=== PATIENT | female | born 1970 | race American Indian/Alaskan Native ===

== ENCOUNTER 2016-06-10 20:20 | Emergency (ER) | payer SELFPAY ==
--- NOTE | 2016-06-11 02:07 | Emergency Department Report ---
ED General Adult HPI - General Chief complaint: Upper Respiratory Infection Stated complaint: SOB Source: patient, family Mode of arrival: Ambulatory Limitations: No Limitations - History of Present Illness Initial comments: Patient presents for evaluation of one episode of shortness of breath which occurred several hours ago. States she felt short of breath (couldn't catch her breath, felt like chest cold ) when she stood up from a sitting position. States shortness of breath lasted has resolved and she feels better. Denies previous history of shortness of breath, asthma or COPD, leg pain or swelling, oral contraceptive use, recent travels, recent illness. Denies weakness, light-headedness, syncope, chest pain pressure or discomfort, wheezing, N/V. No family hx of heart diseases. Reports Hysterectomy in 2013. States in good health except for hypertension and dyslipidemia for which she takes medications (Enalapril, HCTZ, and simvastatin) for. - Related Data Previous Rx's Medication Instructions Recorded Last Taken Type ALBUTEROL Inhaler [ProAir HFA 1 puff IH Q4HR PRN #1 inha 06/11/16 Unknown Rx Inhaler] Allergies Allergy/AdvReac Type Severity Reaction Status Date / Time azithromycin Allergy Swelling Verified 06/10/16 21:13 ceftriaxone Allergy Swelling Verified 06/10/16 21:13 ketorolac tromethamine Allergy Swelling Verified 06/10/16 21:13 [From Toradol] ED Review of Systems ROS: Stated complaint: SOB Other details as noted in HPI Comment: All other systems reviewed and negative ED Past Medical Hx - Past Medical History Previous Medical History?: Yes Hx Hypertension: Yes - Surgical History Past Surgical History?: Yes Additional Surgical History: Hyst - Social History Smoking Status: Never Smoker Substance Use Type: None - Medications Home Medications: Home Medications Medication Instructions Recorded Confirmed Last Taken Type ALBUTEROL Inhaler [ProAir HFA 1 puff IH Q4HR PRN #1 inha 06/11/16 Unknown Rx Inhaler] ED Physical Exam - General Limitations: No Limitations General appearance: alert, in no apparent distress - Head Head exam: Present: atraumatic, normocephalic - Eye Eye exam: Present: normal appearance, PERRL, EOMI. Absent: scleral icterus, conjunctival injection, periorbital swelling, periorbital tenderness - ENT ENT exam: Present: normal exam, normal orophraynx, mucous membranes moist, TM's normal bilaterally, normal external ear exam - Neck Neck exam: Present: normal inspection, full ROM. Absent: tenderness, lymphadenopathy - Respiratory Respiratory exam: Present: normal lung sounds bilaterally. Absent: respiratory distress, wheezes, rales, rhonchi, stridor, chest wall tenderness, accessory muscle use, decreased breath sounds, prolonged expiratory - Cardiovascular Cardiovascular Exam: Present: regular rate, normal rhythm - GI/Abdominal GI/Abdominal exam: Present: soft, normal bowel sounds. Absent: tenderness - Extremities Exam Extremities exam: Present: normal inspection, full ROM, tenderness, normal capillary refill. Absent: pedal edema, joint swelling, calf tenderness - Back Exam Back exam: Present: normal inspection - Neurological Exam Neurological exam: Present: alert, oriented X3, normal gait, reflexes normal. Absent: motor sensory deficit - Psychiatric Psychiatric exam: Present: normal affect, normal mood - Skin Skin exam: Present: warm, dry, intact, normal color. Absent: rash, cyanosis, pallor ED Course Vital Signs 06/10/16 06/11/16 21:09 04:25 Temperature 97.8 F 97.7 F Pulse Rate 88 67 Respiratory 18 16 Rate Blood Pressure 131/81 Blood Pressure 123/79 [Left] O2 Sat by Pulse 98 97 Oximetry ED Medical Decision Making - Lab Data Result diagrams: 06/11/16 02:29 06/11/16 02:29 - EKG Data -: EKG Interpreted by N[facility] EKG shows normal: sinus rhythm (Non-specific T wave abnormality. No obvious ST elevation/depression.) - Radiology Data Radiology results: report reviewed According to radiology report of CXR, no obvious acute cardiopulmonary pathology. - Medical Decision Making 45 YOF with single episode of SOB that has completely resolved. Patient is stable. She has a low risk (<2%) of PE per PERC rule, and low risk (0.9-1.7%) of major adverse coronary event per HEART score. She will be DC'd on Albuterol inhaler PRN and referred to mortgage loan underwriter for further evaluation. Patient education, follow-up/wound care physician, and return instructions provided. She verbalized understanding and is agreeable to plan. Patient discussed with Dr. Giles. He is agreeable to plan. Critical care attestation.: If time is entered above; I have spent that time in minutes in the direct care of this critically ill patient, excluding procedure time. ED Disposition Clinical Impression: Shortness of breath, Abnormal EKG Disposition: DISCHARGED TO HOME OR SELFCARE Is pt being admited?: No Does the pt Need Aspirin: No Condition: Stable Instructions: Dyspnea (ED) Additional Instructions: Follow instructions for care. Be compliant with and use medications as prescribed. Follow up with mortgage loan underwriter for further evaluation of your shortness of breath. Return to ED for new or worsening symptom. Prescriptions: ALBUTEROL Inhaler [ProAir HFA Inhaler] 1 puff IH Q4HR PRN #1 inha PRN Reason: Shortness Of Breath Referrals: DANUTA BERRY MD [Staff Physician] - 2-3 Days [facility] [Outside] - 2-3 Days PRIMARY CAREMD [Primary Care Provider] - 2-3 Days
--- NOTE | 2016-06-11 03:18 | XRay Report ---
FINAL REPORT EXAM: XR CHEST ROUTINE 2V HISTORY: SOB TECHNIQUE: 2 views of the chest PRIORS: None FINDINGS: Lungs are clear. Heart size is mildly enlarged. No pleural effusion or pneumothorax. No vascular congestion. IMPRESSION: 1. No acute finding.
[2016-06-11 03:21] LABS: Basophils % (Auto) 0.6 % (0.0-1.8); Eosinophils % (Auto) 1.8 % (0.0-4.3); Hematocrit 38.7 % (30.3-42.9); Hemoglobin 12.2 gm/dl (10.1-14.3); Mean Corpuscular HGB Conc 32 % (30-34); Mean Corpuscular Volume 79 fl (79-97); Platelet Count 288 K/mm3 (140-440); Red Blood Count 4.89 M/mm3 (3.65-5.03); Red Cell Distribution Width 14.8 % (13.2-15.2); White Blood Count 8.1 K/mm3 (4.5-11.0)
[2016-06-11 03:24] LABS: Mean Corpuscular Hemoglobin 25 pg (28-32)
[2016-06-11 03:47] LABS: Anion Gap 16 mmol/L; Blood Urea Nitrogen 7 mg/dL (7-17); Calcium 8.8 mg/dL (8.4-10.2); Carbon Dioxide 27 mmol/L (22-30); Chloride 97.8 mmol/L (98-107); Glucose 89 mg/dL (65-100); Potassium 3.6 mmol/L (3.6-5.0); Sodium 137 mmol/L (137-145)
[2016-06-11 04:25] VITALS: BP 123/79
== END 2016-06-11 04:26 | disposition home or self-care (01) ==
LOC: ED 20:20
DX: R06.02 Shortness of breath (principal); R94.31 Abnormal electrocardiogram [ECG] [EKG]; I10 Essential (primary) hypertension; Z90.710 Acquired absence of both cervix and uterus; Z88.8 Allergy status to other drugs, medicaments and biological substances; Z88.1 Allergy status to other antibiotic agents
CPT/HCPCS: 36415; 71020; 80048; 83880; 84484; 85025; 93005; 93010

== ENCOUNTER 2017-02-03 07:47 | Emergency (ER) | payer SELFPAY ==
[2017-02-03] MEDS ORDERED: TYLENOL PO ONE (09:00)
[2017-02-03 12:16] VITALS: BP 128/78
--- NOTE | 2017-02-03 15:51 | Emergency Department Report ---
Entered by CRISTIANA JULIEN, acting as scribe for SUREKHA MUNOZ PA. ED ENT HPI - General Chief complaint: Sore Throat Stated complaint: SORE THROAT Time Seen by Provider: 02/03/17 10:01 Source: patient Mode of arrival: Ambulatory Limitations: No Limitations - History of Present Illness Initial comments: 46 y/o female with a PMHx of HTN presents to the ED c/o a sore throat that began 2 days ago. Rates pain a 5/10 in severity, which she describes as throbbing in quality. Aggravated with swallowing and alleviated with nothing. Associated symptom includes mild dry cough, but she denies fever, chills, nausea , vomiting, headache, dizziness, dental pain, ear pain, congestion, rhinorrhea, chest pain, and SOB. Reports a possible sick contact, because she works as a ENVIRONMENTAL ADVISER. Patient also notes that she's been out her HTN medication for 1 month, but she states she already has a prescription for her medication. Allergic to azithromycin, ceftriaxone, and ketorolac tromethamine. MD complaint: sore throat Onset/Timin -: days(s) Location: throat Severity: severe Severity scale (0 -10): 10 Quality: other (throbbing) Consistency: constant Improves with: none Worsens with: swallowing Associated Symptoms: cough (mild), pain with swallowing, sore throat. denies: fever, gum swelling, toothache, tinnitus, hearing loss, discharge from ear, rhinorrhea - Related Data Previous Rx's Medication Instructions Recorded Last Taken Type ALBUTEROL Inhaler [ProAir HFA 1 puff IH Q4HR PRN #1 inha 06/11/16 Unknown Rx Inhaler] Enalapril Maleate [Vasotec] 10 mg PO DAILY #30 tablet 02/03/17 Unknown Rx Hydrochlorothiazide [Hctz] 12.5 mg PO QDAY #30 capsule 02/03/17 Unknown Rx Ibuprofen [Motrin] 600 mg PO Q8H PRN #30 tablet 02/03/17 Unknown Rx Simvastatin [Zocor TAB] 10 mg PO QHS #30 tablet 02/03/17 Unknown Rx Allergies Allergy/AdvReac Type Severity Reaction Status Date / Time azithromycin Allergy Swelling Verified 06/10/16 21:13 ceftriaxone Allergy Swelling Verified 06/10/16 21:13 ketorolac tromethamine Allergy Swelling Verified 06/10/16 21:13 [From Toradol] ED Dental HPI - General Chief complaint: Sore Throat Stated complaint: SORE THROAT Time Seen by Provider: 02/03/17 10:01 Source: patient Mode of arrival: Ambulatory Limitations: No Limitations - Related Data Previous Rx's Medication Instructions Recorded Last Taken Type ALBUTEROL Inhaler [ProAir HFA 1 puff IH Q4HR PRN #1 inha 06/11/16 Unknown Rx Inhaler] Enalapril Maleate [Vasotec] 10 mg PO DAILY #30 tablet 02/03/17 Unknown Rx Hydrochlorothiazide [Hctz] 12.5 mg PO QDAY #30 capsule 02/03/17 Unknown Rx Ibuprofen [Motrin] 600 mg PO Q8H PRN #30 tablet 02/03/17 Unknown Rx Simvastatin [Zocor TAB] 10 mg PO QHS #30 tablet 02/03/17 Unknown Rx Allergies Allergy/AdvReac Type Severity Reaction Status Date / Time azithromycin Allergy Swelling Verified 06/10/16 21:13 ceftriaxone Allergy Swelling Verified 06/10/16 21:13 ketorolac tromethamine Allergy Swelling Verified 06/10/16 21:13 [From Toradol] ED Review of Systems Comment: All other systems reviewed and negative Constitutional: denies: chills, fever Eyes: denies: eye pain, eye discharge, vision change ENT: throat pain. denies: ear pain, dental pain, hearing loss, epistaxis, congestion Respiratory: cough (mild dry cough). denies: orthopnea, shortness of breath, SOB with exertion, SOB at rest, stridor, wheezing Cardiovascular: denies: chest pain, palpitations, dyspnea on exertion, orthopnea , edema, syncope, paroxysmal nocturnal dyspnea Endocrine: no symptoms reported Gastrointestinal: denies: abdominal pain, nausea, vomiting, diarrhea Genitourinary: denies: urgency, dysuria, discharge Musculoskeletal: denies: back pain, joint swelling, arthralgia Skin: denies: rash, lesions Neurological: denies: headache, weakness, numbness, paresthesias, confusion, abnormal gait, vertigo Psychiatric: denies: anxiety, depression Hematological/Lymphatic: denies: easy bleeding, easy bruising ED Past Medical Hx - Past Medical History Previous Medical History?: Yes Hx Hypertension: Yes - Surgical History Past Surgical History?: Yes Additional Surgical History: Hyst - Family History Family history: no significant - Social History Smoking Status: Never Smoker Substance Use Type: None - Medications Home Medications: Home Medications Medication Instructions Recorded Confirmed Last Taken Type ALBUTEROL Inhaler [ProAir HFA 1 puff IH Q4HR PRN #1 inha 06/11/16 Unknown Rx Inhaler] Enalapril Maleate [Vasotec] 10 mg PO DAILY #30 tablet 02/03/17 Unknown Rx Hydrochlorothiazide [Hctz] 12.5 mg PO QDAY #30 capsule 02/03/17 Unknown Rx Ibuprofen [Motrin] 600 mg PO Q8H PRN #30 tablet 02/03/17 Unknown Rx Simvastatin [Zocor TAB] 10 mg PO QHS #30 tablet 02/03/17 Unknown Rx ED Physical Exam - General Limitations: No Limitations General appearance: alert, in no apparent distress - Head Head exam: Present: atraumatic, normocephalic - Eye Eye exam: Present: normal appearance, PERRL, EOMI Pupils: Present: normal accommodation - ENT ENT exam: Present: normal exam, normal orophraynx, mucous membranes moist, TM's normal bilaterally, normal external ear exam - Expanded ENT Exam Expanded Ear exam: Present: normal external inspection Mouth exam: Present: normal external inspection, tongue normal. Absent: drooling, trismus, muffled voice, tongue elevation, laceration Teeth exam: Present: normal inspection Throat exam: Positive: normal inspection. Negative: tonsillar erythema, tonsillomegaly, tonsillar exudate, R peritonsillar mass, L peritonsillar mass - Neck Neck exam: Present: tenderness (tenderness to cervical lymph nodes), full ROM, lymphadenopathy (LT anterior). Absent: normal inspection, meningismus, thyromegaly - Respiratory Respiratory exam: Present: normal lung sounds bilaterally. Absent: respiratory distress, wheezes, rales, rhonchi, stridor, accessory muscle use, decreased breath sounds - Cardiovascular Cardiovascular Exam: Present: regular rate, normal rhythm, normal heart sounds. Absent: systolic murmur, diastolic murmur, rubs, gallop - GI/Abdominal GI/Abdominal exam: Present: soft, normal bowel sounds. Absent: distended - Extremities Exam Extremities exam: Present: normal inspection, full ROM, normal capillary refill. Absent: tenderness, pedal edema, joint swelling, calf tenderness - Back Exam Back exam: Present: normal inspection - Neurological Exam Neurological exam: Present: alert, oriented X3, normal gait - Psychiatric Psychiatric exam: Present: normal affect, normal mood - Skin Skin exam: Present: warm, dry, intact, normal color. Absent: rash ED Course Vital Signs 02/03/17 02/03/17 07:54 12:16 Temperature 98.4 F Pulse Rate 102 H 86 Respiratory 18 18 Rate Blood Pressure 154/106 Blood Pressure 128/78 [Left] O2 Sat by Pulse 98 100 Oximetry ED Medical Decision Making - Medical Decision Making 46 y/o female presents with a sore throat ED course: Strep test sent for patient. Patient received a dose of Tylenol. Strep test was negative. Vital signs stable patient is in no acute or respiratory distress. Discussed with patient to take prescribed Ibuprofen as needed for sore throat Discussed findings with patient about diagnoses. Discussed treatment in ED with patient Discussed with patient to follow up with PCP as referred, and to return to the ED if symptoms return or worsen. Patient states understanding and will follow instructions. Pt verbally states understanding and will comply to follow up. ED Disposition Clinical Impression: Pharyngitis, URI (upper respiratory infection) Disposition: DC- TO HOME OR SELFCARE Is pt being admited?: No Does the pt Need Aspirin: No Condition: Stable Instructions: Pharyngitis (ED), Upper Respiratory Infection (ED) Prescriptions: Simvastatin [Zocor TAB] 10 mg PO QHS #30 tablet Enalapril Maleate [Vasotec] 10 mg PO DAILY #30 tablet Hydrochlorothiazide [Hctz] 12.5 mg PO QDAY #30 capsule Ibuprofen [Motrin] 600 mg PO Q8H PRN #30 tablet PRN Reason: Pain Referrals: PRIMARY CARE,MD [Primary Care Provider] - 3-5 Days [facility] [Outside] - 3-5 Days [facility] [Outside] - 3-5 Days [facility] [Outside] - 3-5 Days Forms: Work/School Release Form(ED) Time of Disposition: 11:50 This documentation as recorded by the ANAYA chang JASMINE,accurately reflects the service I personally performed and the decisions made by ,SUREKHA MUNOZ PA.
== END 2017-02-03 12:16 | disposition home or self-care (01) ==
LOC: ED 07:47
DX: J06.9 Acute upper respiratory infection, unspecified (principal); J02.9 Acute pharyngitis, unspecified; I10 Essential (primary) hypertension; Z88.6 Allergy status to analgesic agent; Z88.1 Allergy status to other antibiotic agents; Z88.8 Allergy status to other drugs, medicaments and biological substances
CPT/HCPCS: 87116; 87430; 99282